=== PATIENT | male | born 1955 | race Caucasian/White ===

== ENCOUNTER 2020-07-21 08:46 | Emergency (ER) | payer OTHER, BC ==
[2020-07-21 09:01] VITALS: BMI 29.7
[2020-07-21 09:29] LABS: ACTIVATED PTT 35.5 SECONDS (25.2-36.5); HEMATOCRIT 44.1 % (35.4-49); HEMOGLOBIN 15.2 GM/dl (11.7-16.9); MCH 32.5 pg (25.7-33.7); MCHC 34.5 g/dl (32.0-35.9); MEAN CELL VOLUME 94.3 fl (80-96); MEAN PLT VOLUME 7.5 fl (7.5-11.1); PLATELET COUNT 271 K/MM3 (134-434); RBC 4.68 M/mm3 (4.00-5.60); RDW 12.3 % (11.9-15.9); WHITE BLOOD COUNT 4.1 K/mm3 (4.0-10.8)
[2020-07-21 09:34] LABS: INR 2.76 (0.82-1.09); PROTHROMBIN TIME (PATIENT) 28.9 SEC (10.2-13.0)
[2020-07-21 09:38] LABS: ALBUMIN 3.7 g/dl (3.4-5.0); BILIRUBIN,TOTAL 1.2 mg/dl (0.2-1); CALCIUM 8.2 mg/dl (8.5-10); MAGNESIUM 1.8 mg/dL (1.8-2.4); POTASSIUM 3.9 mmol/L (3.5-5.1); TOT PROT 6.1 g/dl (6.4-8.2)
[2020-07-21] MEDS ORDERED: ONDANSETRON 4 MG/2 ML VIAL IVPUSH ONE (09:47)
[2020-07-21] MEDS ORDERED: ONDANSETRON 4 MG/2 ML VIAL ONE (09:50)
[2020-07-21] MEDS ORDERED: ACETAMINOPHEN 325 MG TABLET (FP) PO ONE (09:54)
[2020-07-21] MEDS ORDERED: ACETAMINOPHEN 325 MG TABLET (FP) ONE (09:57)
[2020-07-21 10:11] LABS: PLATELET ESTIMATE ADEQUATE
[2020-07-21 12:28] VITALS: PULSE 64
[2020-07-21] MEDS ORDERED: KETOROLAC TROMETHAMINE 15 MG/ML VIAL IVPUSH ONE (13:13)
[2020-07-21] MEDS ORDERED: KETOROLAC TROMETHAMINE 15 MG/ML VIAL ONE (13:18)
[2020-07-21 13:26] VITALS: BP 108/81; TEMP 98
== END 2020-07-21 13:41 | disposition home or self-care (01) ==
LOC: FER 08:46
PROC: 3E033NZ Introduction of Analgesics, Hypnotics, Sedatives into Peripheral Vein, Percutaneous Approach (ICD-10-PCS; principal; 2020-07-21)
PROC: 3E0333Z Introduction of Anti-inflammatory into Peripheral Vein, Percutaneous Approach (ICD-10-PCS; 2020-07-21)
DX: R07.9 Chest pain, unspecified (principal)
CPT/HCPCS: 36415; 71045-TC-FY; 80053; 82550; 83735; 84484; 85025; 85610; 85730; 93005; 99285-25

== ENCOUNTER 2020-11-18 18:15 | Inpatient (IN) | payer OTHER, BC ==
[2020-11-18] MEDS ORDERED: LACTATED RINGERS SOLUTION 1000 ML INFUS.BAG IV STA (18:35)
[2020-11-18] MEDS ORDERED: ACETAMINOPHEN 1000 MG/100 ML VIAL (NON FORMULARY) IVPB ONE (18:36)
[2020-11-18] MEDS ORDERED: ASPIRIN 81 MG CHEWABLE TABLETS PO ONE (18:36)
[2020-11-18] MEDS ORDERED: ASPIRIN 81 MG CHEWABLE TABLETS ONE (19:00)
[2020-11-18] MEDS ORDERED: ACETAMINOPHEN INJECTION 100 ML IVPB ONE (19:00)
[2020-11-18 19:10] LABS: BASO % 2.7 % (0-2.0); EOS % 0.6 % (0-4.5); HEMATOCRIT 46.5 % (35.4-49); HEMOGLOBIN 16.2 GM/dl (11.7-16.9); LYMPH % 29.2 % (8-40); MCH 33.3 pg (25.7-33.7); MCHC 34.9 g/dl (32.0-35.9); MEAN CELL VOLUME 95.3 fl (80-96); MEAN PLT VOLUME 7.8 fl (7.5-11.1); MONO % 16.1 % (3.8-10.2); NEUT % 51.4 % (42.8-82.8); PLATELET COUNT 313 K/MM3 (134-434); RBC 4.88 M/mm3 (4.00-5.60); RDW 11.7 % (11.9-15.9); WHITE BLOOD COUNT 5.1 K/mm3 (4.0-10.8)
[2020-11-18 19:33] LABS: ALBUMIN 4.1 g/dl (3.4-5.0); CALCIUM 9.1 mg/dl (8.5-10); CREATININE 0.7 mg/dl (0.55-1.3); TOT PROT 6.6 g/dl (6.4-8.2)
[2020-11-18 19:36] LABS: INR 1.09 (0.82-1.09); PROTHROMBIN TIME (PATIENT) 12.1 SEC (10.2-13.0)
[2020-11-18] MEDS ORDERED: SODIUM CHLORIDE 1,000 ML IV STA (23:15)
[2020-11-18] MEDS ORDERED: METOPROLOL TARTRATE 5 MG/5 ML VIAL IVPUSH ONE (23:26)
[2020-11-18] MEDS ORDERED: SODIUM CHLORIDE 1,000 ML IV SCH (23:45)
[2020-11-18] MEDS: APIXABAN 5 MG TABLET PO SCH (23:59)
[2020-11-19 05:53] VITALS: BMI 28.3
[2020-11-19 08:38] LABS: BASO % 0.8 % (0-2.0); EOS % 1.2 % (0-4.5); HEMATOCRIT 41.5 % (35.4-49); HEMOGLOBIN 14.8 GM/dl (11.7-16.9); LYMPH % 29.8 % (8-40); MCH 33.6 pg (25.7-33.7); MCHC 35.6 g/dl (32.0-35.9); MEAN CELL VOLUME 94.2 fl (80-96); MEAN PLT VOLUME 7.8 fl (7.5-11.1); MONO % 14.5 % (3.8-10.2); NEUT % 53.7 % (42.8-82.8); PLATELET COUNT 290 K/MM3 (134-434); RDW 11.8 % (11.9-15.9); WHITE BLOOD COUNT 4.7 K/mm3 (4.0-10.8)
[2020-11-19 08:52] LABS: ALBUMIN 3.6 g/dl (3.4-5.0); BILIRUBIN,TOTAL 1.5 mg/dl (0.2-1); CALCIUM 9.2 mg/dl (8.5-10); CREATININE 0.7 mg/dl (0.55-1.3); MAGNESIUM 1.9 mg/dL (1.8-2.4)
[2020-11-19] MEDS: APIXABAN 5 MG TABLET PO SCH ×2 (09:18)
[2020-11-19] MEDS ORDERED: metoPROLOL SUCCINATE 25 MG TAB.SR.24H (FP) PO SCH (10:00)
[2020-11-19] MEDS ORDERED: ACETAMINOPHEN 325 MG TABLET (FP) PO PRN (11:43)
[2020-11-19 14:21] VITALS: BP 110/59; PULSE 97; TEMP 98
== END 2020-11-19 17:27 | disposition home or self-care (01) | DRG 313 ==
LOC: FER 18:15 → FM/S 11-19 01:53
PROVIDERS: ADMIT Hospitalist; ATTEND Nurse Practitioner Acute Care
DX: R07.9 Chest pain, unspecified (principal); I48.92 Unspecified atrial flutter; I47.1 Supraventricular tachycardia; G60.0 Hereditary motor and sensory neuropathy; R91.1 Solitary pulmonary nodule
CPT/HCPCS: 36415; 71045-TC-FY; 71275-TC; 80053; 80061; 80307; 81003; 82550; 83735; 84443; 84484; 85025; 85379; 85610; 85730; 87804; 93005; 93306-TC; 99285-25; C9803; J0131; Q9967; U0003; U0005

== ENCOUNTER 2022-01-13 10:45 | Emergency (ER) | payer OTHER, BC ==
[2022-01-13 11:14] VITALS: BP 122/89; PULSE 102; TEMP 98.1; BMI 27.9
[2022-01-13] MEDS ORDERED: ACETAMINOPHEN 325 MG TABLET (FP) PO ONE (12:51)
[2022-01-13] MEDS ORDERED: ACETAMINOPHEN 325 MG TABLET (FP) ONE (12:53)
== END 2022-01-13 12:58 | disposition home or self-care (01) ==
LOC: FER 10:45
DX: S09.90XA Unspecified injury of head, initial encounter (principal); S29.012A Strain of muscle and tendon of back wall of thorax, initial encounter; W08.XXXA Fall from other furniture, initial encounter
CPT/HCPCS: 70450-TC; 72070-TC-FY; 99284-25

== ENCOUNTER 2022-11-28 10:59 | Emergency (ER) | payer OTHER, BC ==
[2022-11-28 11:16] VITALS: BP 140/94; PULSE 95; RESP 16; TEMP 97.9; BMI 28.7
[2022-11-28] MEDS ORDERED: ACETAMINOPHEN 500 MG TABLET (FP) PO ONE (11:59)
[2022-11-28] MEDS ORDERED: ACETAMINOPHEN 500 MG TABLET (FP) ONE (12:03)
== END 2022-11-28 13:39 | disposition home or self-care (01) ==
LOC: FER 10:59
DX: N50.89 Other specified disorders of the male genital organs (principal); N50.811 Right testicular pain; N50.82 Scrotal pain; R21 Rash and other nonspecific skin eruption
CPT/HCPCS: 76870-TC; 81003; 87086; 99284-25